=== PATIENT | male | born 1960 | race African-American/Black ===

== ENCOUNTER → 2022-03-03 15:08 | Outpatient (BNVA) | payer BC, SELFPAY | PROVIDERS: PCP Internal Medicine; Visit Provider Internal Medicine Rheumatology | DX: M70.62 Trochanteric bursitis, left hip (principal); M75.82 Other shoulder lesions, left shoulder | CPT/HCPCS: 20610 ==

== ENCOUNTER 2022-03-05 13:37 | Outpatient (REF) | payer BC, SELFPAY ==
--- NOTE | ~2022-03-05 | XR_ITS ---
EXAMINATION: X-RAY RIGHT HAND X-RAY LEFT HAND CLINICAL INFORMATION: Pain. COMPARISON: None TECHNIQUE: 3 views of each hand. FINDINGS: Right hand: Prominent well-corticated osseous fragments in the periarticular ulnar and dorsal surfaces of the distal second DIP joint with surrounding soft tissue swelling. Joint alignment is maintained. No erosive changes. Left hand: No acute fracture or malalignment. No erosions or chondrocalcinosis. No significant soft tissue abnormality. XR/XR hand LT min 3V IMPRESSION: Prominent well-corticated osseous fragments in the periarticular ulnar and dorsal surfaces of the right second DIP joint with surrounding soft tissue swelling. These findings could be related with an old injury or prominent degenerative enthesophytes. However, an acute injury cannot be excluded. Recommend correlation with point tenderness.
--- NOTE | ~2022-03-05 | XR_ITS ---
EXAMINATION: X-RAY RIGHT HAND X-RAY LEFT HAND CLINICAL INFORMATION: Pain. COMPARISON: None TECHNIQUE: 3 views of each hand. FINDINGS: Right hand: Prominent well-corticated osseous fragments in the periarticular ulnar and dorsal surfaces of the distal second DIP joint with surrounding soft tissue swelling. Joint alignment is maintained. No erosive changes. Left hand: No acute fracture or malalignment. No erosions or chondrocalcinosis. No significant soft tissue abnormality. XR/XR hand RT min 3V IMPRESSION: Prominent well-corticated osseous fragments in the periarticular ulnar and dorsal surfaces of the right second DIP joint with surrounding soft tissue swelling. These findings could be related with an old injury or prominent degenerative enthesophytes. However, an acute injury cannot be excluded. Recommend correlation with point tenderness.
== END 2022-03-05 13:38 | disposition home or self-care (01) ==
LOC: HO.XRAY 13:37
PROVIDERS: PCP Internal Medicine; Visit Provider Internal Medicine Rheumatology
DX: M79.641 Pain in right hand (principal); M79.642 Pain in left hand
CPT/HCPCS: 73130